=== PATIENT | male | born 1995 | race Two or more races ===

== ENCOUNTER 2021-11-19 00:09 | Emergency (ER) | payer OTHER ==
[~2021-11-19] VITALS: Ht 190.5 cm; Wt 72.6 kg
[2021-11-19] MEDS ORDERED: KETO10TA2 PO (04:20)
[2021-11-19] MEDS ORDERED: DUI500 PO (04:20)
== END 2021-11-19 04:28 ==
LOC: ER 00:09
DX: H57.11 Ocular pain, right eye (principal); R51.9 Headache, unspecified

== ENCOUNTER 2022-02-12 18:07 | Emergency (ER) | payer OTHER ==
[~2022-02-12] VITALS: Ht 190.5 cm; Wt 72.6 kg
[~2022-02-12 18:07] MED LIST: DUI500 PO; KETO10TA2 PO
== END 2022-02-12 22:14 | disposition home or self-care (01) ==
LOC: ER 18:07
DX: S61.411A Laceration without foreign body of right hand, initial encounter (principal); V49.9XXA Car occupant (driver) (passenger) injured in unspecified traffic accident, initial encounter; Y93.9 Activity, unspecified; Y92.413 State road as the place of occurrence of the external cause; Y99.9 Unspecified external cause status